=== PATIENT | male | born 1985 | race Caucasian/White ===

== ENCOUNTER → 2016-10-25 | Outpatient (REF) | payer OTHER | LOC: M LAB REF 16:53 | PROVIDERS: ATTEND Physician Assistant | DX: R30.0 Dysuria (principal) ==

== ENCOUNTER 2021-02-14 20:09 | Emergency (ER) | payer OTHER ==
[~2021-02-14] VITALS: Ht 190.5 cm; Wt 98.2 kg
[2021-02-14 20:10] VITALS: BP 155/93
== END 2021-02-15 03:10 | disposition left against medical advice (07) ==
LOC: M ED 20:09
DX: Z53.21 Procedure and treatment not carried out due to patient leaving prior to being seen by health care provider (principal)

== ENCOUNTER → 2021-02-15 | Outpatient (CLI) | payer BC, OTHER ==
--- NOTE | 2021-02-15 13:36 | REP ---
INDICATION: CONTUSION OF UNSPECIFIED PART OF HEAD, INITIAL ENCOUNTER. COMPARISON: None. TECHNIQUE: Seven x-ray images of the facial bones, in multiple projections were obtained. FINDINGS: The mandible appears intact. The nasal bones are not well demonstrated. The zygomatic bones and maxilla appear intact. The orbital rims appear intact. The paranasal sinuses and mastoid air cells are clear. There are no soft tissue abnormality is evident. IMPRESSION: Normal facial bone x-rays. <Electronically signed by Kan Landeros > 02/15/21 [id number]
== END ==
LOC: M RAD 12:06
PROVIDERS: ATTEND Physician Assistant
DX: S00.93XA Contusion of unspecified part of head, initial encounter (principal); X58.XXXA Exposure to other specified factors, initial encounter; Y92.9 Unspecified place or not applicable; Y93.9 Activity, unspecified; Y99.9 Unspecified external cause status